=== PATIENT | male | born 1970 | race Two or more races ===

== ENCOUNTER 2016-11-18 07:30 | Emergency (ER) | payer MEDICAID ==
[~2016-11-18] VITALS: Ht 182.9 cm; Wt 88.9 kg
[~2016-11-18 07:30] MED LIST: ALPRAZOLAM1 MG PO; CIPRO 500MG TA500 MG PO; CYCLOBENZAPRINE10 MG PO; FLAGYL500 M1 PO; HYDROCODONE-APA1 TA2 PO; MELOXICAM7.5 MG PO; NEURONTIN 100100 MG PO; OLANZAPINE5 MG PO; PRILOSEC20 M1 PO; TESSALON PERLE100 MG PO; ZYPREXA 5MG TAB5 MG PO
[2016-11-18] MEDS ORDERED: NOMEDS XX (07:40)
--- NOTE | 2016-11-18 07:47 | Emergency Room Report ---
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 N Clinical Suspician of Infection? N Mental Status: 1 - Regular (Normal Baseline) Sepsis Risk:Low Sepsis Risk Have you (or family members/close friends) recently traveled outside the [place]? N If Yes, where/when: Have you had exposure to infectious disease within the past month? N TB? Other? Specify: Source patient, RN notes reviewed, RN/MD Exam Limitations no limitations Comment This 45-year-old gentleman arriving to the emergency room with nonproductive cough, sore throat or runny nose, off-and-on for the past 3 weeks. He has used [id number] medications so far, with insufficient clinical response. Patient denies any recent travel or exposure to sick contacts. ALLERGIES Coded Allergies: divalproex sodium (From Depakote) (Severe, SUICIDAL IDEATION 09/05/16) fluoxetine (From Prozac) (Severe, SUICIDAL IDEATION 09/05/16) escitalopram (From Lexapro) (Mild, NA-NAUSEA/VOMITING 09/05/16) Home Medications Reported Medications No Home Medications (NO HOME MEDICATIONS) 1 EACH XX ONCE History Medical History General CAD? No Angina: Yes ND: No Hypertension? No Hyperlipidemia? No CHF? No DVT? No PE? No COPD? No Asthma? No Anemia? No GERD? Yes Gastric ulcers? Yes GI Bleed? No Hernia? Yes Thyroid Problems? No Hypothyroidism? No CVA? No Seizures? No Diabetes? No End Stage Renal Disease? No UTI? No Stones? No BPH? No GB Disease: Yes Nephritic Syndrome? No Asplenia? No Hepatitis? No Sickle Cell Disease? No Arthritis? Yes Migraines? Yes Cataracts? No Glaucoma? No MRSA? No HIV? No TB? No Anxiety? No Depression? No Cancer? No More? Yes Additional hx: HEART MURMUR Immunization Hx DT/Tetanus 1-4 Years Ago Flu Refused Pneumonia Never Had Surgical Hx Previous Surgery?Y VASECTOMY CHOLEYCYSTECTOMY Family History Family Hx Diabetes No CAD No Hypertension No Hyperlipidemia No Cancer Yes TB No Social History Smoking Hx Smoker: Current Every Day Smoker Tobacco: Yes Type Cigarettes Packs/day < 1 Pack Are you/the child exposed to second-hand smoke: No Alcohol Alcohol: No Review of Systems All Other Systems Reviewed and Negative Respiratory cough Physical Exam Vital Signs Vital Signs Date Time Temp Pulse Resp B/P Pulse O2 O2 Flow FiO2 Ox Delivery Rate 11/18 0808 98.2 92 20 138/88 97 11/18 0735 98.2 88 20 156/95 98 General Appearance normal appearance, WD/WN, no apparent distress Ear, Nose, Throat hearing grossly normal, nasal congestion, pharyngeal erythema Neck normal inspection, non-tender, supple, full range of motion Respiratory Status Yes: trachea midline, chest symmetrical, non tender chest. No: respiratory distress. Lung Sounds bilateral: normal breath sounds, lungs clear. 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 No Comment Patient appears medically stable, minimally symptomatic. Advised patient to follow-up with PCP if not better in 2-3 days. Departure Departure Time of Disposition 0755 Disposition DC Home or Self Care(routine) Clinical Impression Primary Impression: Bronchitis Condition STABLE Patient Instructions DI for Acute Bronchitis Additional Instructions Please take the antibiotics prescribed as instructed, add an OTC decongestant, see your family PCP if not better in 2 weeks. Discharge Counseling Counseled pt/family regarding diagnosis, medications/RX, home care, follow up needs, tobacco counseling,> 3min Comment Please take the antibiotics prescribed as instructed, add an OTC decongestant, see your family PCP if not better in 2 weeks. Prescriptions Current Visit Scripts Amoxicillin/Potassium Clav (Augmentin 875-125 Tablet) 1 EACH PO BID #20 TAB ED Critical Care Critical Care No at [id number]
--- NOTE | 2016-11-18 07:47 | Emergency Room Report ---
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 N Clinical Suspician of Infection? N Mental Status: 1 - Regular (Normal Baseline) Sepsis Risk:Low Sepsis Risk Have you (or family members/close friends) recently traveled outside the [place]? N If Yes, where/when: Have you had exposure to infectious disease within the past month? N TB? Other? Specify: Source patient, RN notes reviewed, RN/MD Exam Limitations no limitations Comment This 45-year-old gentleman arriving to the emergency room with nonproductive cough, sore throat or runny nose, off-and-on for the past 3 weeks. He has used [id number] medications so far, with insufficient clinical response. Patient denies any recent travel or exposure to sick contacts. ALLERGIES Coded Allergies: divalproex sodium (From Depakote) (Severe, SUICIDAL IDEATION 09/05/16) fluoxetine (From Prozac) (Severe, SUICIDAL IDEATION 09/05/16) escitalopram (From Lexapro) (Mild, NA-NAUSEA/VOMITING 09/05/16) Home Medications Reported Medications No Home Medications (NO HOME MEDICATIONS) 1 EACH XX ONCE History Medical History General CAD? No Angina: Yes OR: No Hypertension? No Hyperlipidemia? No CHF? No DVT? No PE? No COPD? No Asthma? No Anemia? No GERD? Yes Gastric ulcers? Yes GI Bleed? No Hernia? Yes Thyroid Problems? No Hypothyroidism? No CVA? No Seizures? No Diabetes? No End Stage Renal Disease? No UTI? No Stones? No BPH? No GB Disease: Yes Nephritic Syndrome? No Asplenia? No Hepatitis? No Sickle Cell Disease? No Arthritis? Yes Migraines? Yes Cataracts? No Glaucoma? No MRSA? No HIV? No TB? No Anxiety? No Depression? No Cancer? No More? Yes Additional hx: HEART MURMUR Immunization Hx DT/Tetanus 1-4 Years Ago Flu Refused Pneumonia Never Had Surgical Hx Previous Surgery?Y VASECTOMY CHOLEYCYSTECTOMY Family History Family Hx Diabetes No CAD No Hypertension No Hyperlipidemia No Cancer Yes TB No Social History Smoking Hx Smoker: Current Every Day Smoker Tobacco: Yes Type Cigarettes Packs/day < 1 Pack Are you/the child exposed to second-hand smoke: No Alcohol Alcohol: No Review of Systems All Other Systems Reviewed and Negative Respiratory cough Physical Exam Vital Signs Vital Signs Date Time Temp Pulse Resp B/P Pulse O2 O2 Flow FiO2 Ox Delivery Rate 11/18 0808 98.2 92 20 138/88 97 11/18 0735 98.2 88 20 156/95 98 General Appearance normal appearance, WD/WN, no apparent distress Ear, Nose, Throat hearing grossly normal, nasal congestion, pharyngeal erythema Neck normal inspection, non-tender, supple, full range of motion Respiratory Status Yes: trachea midline, chest symmetrical, non tender chest. No: respiratory distress. Lung Sounds bilateral: normal breath sounds, lungs clear. 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 No Comment Patient appears medically stable, minimally symptomatic. Advised patient to follow-up with PCP if not better in 2-3 days. Departure Departure Time of Disposition 0755 Disposition DC Home or Self Care(routine) Clinical Impression Primary Impression: Bronchitis Condition STABLE Patient Instructions DI for Acute Bronchitis Additional Instructions Please take the antibiotics prescribed as instructed, add an OTC decongestant, see your family PCP if not better in 2 weeks. Discharge Counseling Counseled pt/family regarding diagnosis, medications/RX, home care, follow up needs, tobacco counseling,> 3min Comment Please take the antibiotics prescribed as instructed, add an OTC decongestant, see your family PCP if not better in 2 weeks. Prescriptions Current Visit Scripts Amoxicillin/Potassium Clav (Augmentin 875-125 Tablet) 1 EACH PO BID #20 TAB ED Critical Care Critical Care No at 1446
[2016-11-18] MEDS ORDERED: AUGMENTIN 875-1 EACH PO (07:57)
[2016-11-18 08:08] VITALS: BP 138/88
== END 2016-11-18 08:09 | disposition home or self-care (01) ==
LOC: ER 07:30
DX: J20.9 Acute bronchitis, unspecified (principal); Z72.0 Tobacco use; K21.9 Gastro-esophageal reflux disease without esophagitis